=== PATIENT | male | born 1995 | race Caucasian/White ===

== ENCOUNTER 2017-08-24 16:46 | Emergency (ER) | payer OTHER ==
[2017-08-24 16:52] VITALS: RESP 16; TEMP 98.6; O2SAT 97
--- NOTE | 2017-08-24 17:40 | EDPHY ---
H & P Stated Complaint: cut and avulsed tip of l thumb cutting onions Time Seen by Provider: 08/24/17 17:39 HPI/ROS: HPI: This is a 21-year-old male presents with Chief Complaint: cut and avulsed tip of l thumb cutting onions Location: Left thumb tip Quality: Cut Duration: 1 hour prior to arrival Signs and Symptoms: + bleeding, no radiation, no numbness, no weakness, no tingling, no decreased range of motion Timing: Sudden Severity: [id number] Context: Patient was cutting onions at home and accidentally cut the skin off the tip of his left thumb. Started to immediately bleed and he applied pressure. He reports that his nail is still intact. He reports that the pain is constant and moderate in nature, nonradiating. He is right-hand dominant. Reports tetanus is current. Modifying Factors: Direct pressure Comment: ROS: see HPI Constitutional: No fever, no chills, no weight loss Eyes: No blurred vision Respiratory: No shortness of breath, no cough Cardiovascular: No chest pain Gastrointestinal: No nausea, no vomiting no diarrhea Genitourinary: No dysuria Extremities: No myalgias Neurologic: No weakness, no numbness Skin: No rashes Hematologic: No bruising, no bleeding MEDICAL/SURGICAL/SOCIAL HISTORY: Medical history: Epilepsy Surgical history: Denies Social history: Student CONSTITUTIONAL: Young adult white male, awake and alert, no obvious distress HEENT: Atraumatic and normocephalic, PERRL, EOMI. Tympanic membranes clear. Oropharynx clear, no exudate and moist pink mucosa. Airway patent. No lymphadenopathy. No meningismus. Cardiovascular: Normal S1/S2, regular rate, regular rhythm, without murmur rub or gallop. PULMONARY/CHEST: Symmetrical and nontender. Clear to auscultation bilaterally. Good air movement. No accessory muscle usage. ABDOMEN: Soft, nondistended, nontender, no rebound, no guarding, no peritoneal signs, no masses or organomegaly. No CVAT. EXTREMITIES: 2/2 pulses, left thumb partial superficial skin avulsion of tip; sparing the nail; mild bleeding noted. Light touch/flexion/extension intact. no deformities, no clubbing, no cyanosis or edema. NEUROLOGICAL: no focal neuro deficits. GCS 15. SKIN: Warm and dry, no erythema. no rash. Good capillary refill. Source: Patient Exam Limitations: No limitations - Personal History Current Tetanus/Diphtheria Vaccine: Yes - Medical/Surgical History Hx Asthma: No Hx Chronic Respiratory Disease: No Hx Diabetes: No Hx Cardiac Disease: No Hx Renal Disease: No Hx Cirrhosis: No Hx Alcoholism: No Hx HIV/AIDS: No Hx Splenectomy or Spleen Trauma: No Other PMH: epilepsy - Social History Smoking Status: Current every day smoker Constitutional: Initial Vital Signs Temperature (C) 37 C 08/24/17 16:49 Heart Rate 53 L 08/24/17 16:49 Respiratory Rate 16 08/24/17 16:49 Blood Pressure 138/68 H 08/24/17 16:49 O2 Sat (%) 97 08/24/17 16:49 O2 Delivery Mode Room Air Allergies/Adverse Reactions: No Known Allergies Allergy (Verified 08/24/17 16:49) Home Medications: Medication Instructions Recorded Mirta 08/24/17 Medical Decision Making - Diagnostics Imaging Results: Imaging Impressions Finger X-Ray 08/24/17 17:40 Impression: Soft tissue injury, with no acute osseous abnormality, or radiopaque foreign body. Procedures: Procedure: Splint placement. A left thumb finger splint was applied by the Emergency Room infectious waste technician. After application of the splint I returned and re-examined the patient. The splint was adequately immobilizing the joint and distal to the splint the patient's circulation and sensation was intact. ED Course/Re-evaluation: X-ray ordered and read via PACs my read shows no fracture Tetanus up-to-date Digital finger block provided for pain control. Wound irrigated. Surgicel applied for hemostasis. No skin to suture. No nail involvement. Xeroform, gauze, finger splint applied. no abx indicated. Discussed case with attending. No signs of neurovascular compromise/tenting of skin/compartment syndrome/ extremities and joints examined above and below area of concern and are neurovascularly intact. Follow-up with Hand surgery. Differential Diagnosis: Differential diagnosis includes but is not limited to fracture, contusion, nerve injury, tendon injury. Departure - Departure Disposition: Home, Routine, Self-Care Clinical Impression: Fingertip avulsion Qualifiers: Encounter type: initial encounter Qualified Code(s): S61.209A - Unspecified open wound of unspecified finger without damage to nail, initial encounter Condition: Good Instructions: Skin Avulsion (ED) Additional Instructions: Keep the dressing and splint in place for 48 hours. After 48 hours, you may remove the dressing; wash the site daily with mild soap and water; then pat dry. Apply topical antibiotic ointment and cover with clean sterile dressing daily until fully healed. Take ibuprofen 600 mg every 6-8 hours with food as needed for pain and inflammation. Follow up with Hand Surgery in 5-7 days for re-evaluation. The x-rays obtained in the emergency department today demonstrate no evidence of an obvious fracture. Sometimes fractures are not obvious on the initial set of x-rays performed in the ED. For this reason, you should have repeat x-rays performed in 7-10 days if you are having any pain exclude the possibility of an occult fracture. Referrals: Aj Ching MD [Medical Doctor] - As per Instructions
[2017-08-24 18:31] VITALS: BP 134/79; PULSE 54
== END 2017-08-24 18:43 | disposition home or self-care (01) ==
PROC: 3E0T3BZ Introduction of Anesthetic Agent into Peripheral Nerves and Plexi, Percutaneous Approach (ICD-10-PCS; principal; 2017-08-24)
DX: S61.002A Unspecified open wound of left thumb without damage to nail, initial encounter (principal); F17.200 Nicotine dependence, unspecified, uncomplicated; W26.0XXA Contact with knife, initial encounter; Y99.8 Other external cause status; Y93.G1 Activity, food preparation and clean up